=== PATIENT | male | born 1955 | race Hispanic/Latino ===

== ENCOUNTER 2019-08-30 12:13 | Inpatient (IN) | payer BC, MEDICARE ==
[~2019-08-30] VITALS: Ht 190.5 cm; Wt 135.0 kg
[2019-08-30 12:43] LABS: BASOPHILS % (AUTO) 0.1 % (0.0-5.0); HEMATOCRIT 44.3 % (42-54); LYMPHOCYTES % (AUTO) 16.2 % (21.0-51.0); MEAN CORPUSCULAR HEMOGLOBIN 28.8 pg (27.0-33.0); MEAN CORPUSCULAR HGB CONC 34.3 g/dL (32.0-36.0); MEAN CORPUSCULAR VOLUME 83.9 fL (79-99); MONOCYTES % (AUTO) 5.8 % (3.0-13.0); NEUTROPHILS % (AUTO) 77.7 % (40.0-77.0); PLATELET COUNT (AUTO) 219 K/uL (130-400); RED BLOOD CELL COUNT(AUTO) 5.28 MIL/uL (4.50-6.20); RED CELL DISTRIBUTION WIDTH 13.6 % (11.0-15.5); WHITE BLOOD COUNT (AUTO) 8.3 K/uL (4.8-10.8)
[2019-08-30] MEDS ORDERED: AZITHROMYCIN 500MG+NS 250ML 250 ML IV ONE (12:50)
[2019-08-30] MEDS ORDERED: CEFTRIAXONE SODIUM 1 GM ONE (12:50)
[2019-08-30] MEDS ORDERED: METHYLPREDNISOLONE SOD SUCC 125MG/2ML VIAL ONE (12:50)
[2019-08-30 12:51] LABS: POTASSIUM 4.2 mmol/L (3.5-5.1)
[2019-08-30] MEDS ORDERED: SODIUM CHLORIDE 0.9% 100 ML IV ONE (12:51)
[2019-08-30 12:56] LABS: ALBUMIN 4.1 g/dL (3.5-5.0); BILIRUBIN,TOTAL 0.6 mg/dL (0.2-1.0); TOTAL PROTEIN, SERUM 8.4 g/dL (6.0-8.3)
[2019-08-30 13:08] LABS: ABG BASE EXCESS 1.6 mmol/L (-2.0-3.0); ABG HCO3 26.3 mmol/L (21.0-28.0); ABG OXYGEN SATURATION 94.6 % (95.0-99.0); ABG PCO2 42 mmHg (35-48)
[2019-08-30] MEDS ORDERED: IOHEXOL-350 75 ML VIAL IV ONE (13:54)
[2019-08-30] MEDS ORDERED: SODIUM CHLORIDE 0.9% 1000ML 1,000 ML IV SCH (14:00)
[2019-08-30 15:22] VITALS: BP 142/74
[2019-08-30] MEDS ORDERED: NITROGLYCERIN 0.4 MG SL TAB SL PRN (16:30)
[2019-08-30] MEDS ORDERED: LIDOCAINE HCL-MPF 1% 2ML VIAL IJ PRN (16:30)
[2019-08-30] MEDS ORDERED: ONDANSETRON HCL 4 MG/2 ML VIAL IVP PRN (16:30)
[2019-08-30] MEDS ORDERED: GUAIFENESIN-DM 200/20 MG 10 ML PO PRN (16:30)
[2019-08-30] MEDS ORDERED: DiphenhydrAMINE HCL 50 MG/ML VIAL IVP PRN (16:30)
[2019-08-30] MEDS ORDERED: DIPHENHYDRAMINE HCL 25 MG CAPSULE PO PRN (16:30)
[2019-08-30] MEDS ORDERED: LACTULOSE 20 GM/30 ML UDCUP PO PRN (16:30)
[2019-08-30] MEDS ORDERED: POTASSIUM CHLORIDE 20MEQ/100ML 100 ML IV PRN (16:30)
[2019-08-30] MEDS ORDERED: POTASSIUM CHLORIDE 10% ELIXIR 20 MEQ/15 ML UDCUP PO PRN (16:30)
[2019-08-30] MEDS ORDERED: CLONIDINE HCL 0.1 MG TABLET PO PRN (16:30)
[2019-08-30] MEDS ORDERED: SODIUM CHLORIDE 0.9% 10 ML VIAL IVP SCH (16:30)
[2019-08-30] MEDS ORDERED: MAG HYDROX/AL HYDROX/SIMETH ES 30 ML SUSP UDCUP PO PRN (16:30)
[2019-08-30] MEDS ORDERED: POTASSIUM CHLORIDE 20 MEQ ERTAB PO PRN (16:30)
[2019-08-30] MEDS ORDERED: ACETAMINOPHEN 325 MG TAB PO PRN ×2 (16:30)
[2019-08-30] MEDS ORDERED: PRED5TAB PO (17:28)
[2019-08-30] MEDS ORDERED: ALBUTEROL SULFATE IH (17:28)
[2019-08-30] MEDS ORDERED: [UNRECOGNIZED DRUG - CODE] PO (17:28)
[2019-08-30] MEDS ORDERED: VIRTUSSIN PO (17:28)
[2019-08-30] MEDS ORDERED: AMOX1TAB16 PO (17:28)
[2019-08-30] MEDS ORDERED: AZIT500T4 PO (17:28)
[2019-08-30] MEDS ORDERED: METH4TAB PO (17:28)
[2019-08-30] MEDS: IPRATROPIUM/ALBUTEROL SULFATE 3 ML SOLUTION IH SCH ×2 (19:01→22:35)
[2019-08-30 19:52] VITALS: BP 155/78
[2019-08-30] MEDS: FAMOTIDINE 20MG TAB 20 MG TAB PO SCH (22:21)
[2019-08-30] MEDS: ZOLPIDEM TARTRATE 5 MG TAB PO PRN (22:54)
[2019-08-30 23:48] VITALS: BP 192/69
[2019-08-31] VITALS (7 sets, daily range): BP systolic 107–140; BP diastolic 63–80
[2019-08-31 04:34] LABS: HEMATOCRIT 41.6 % (42-54); MEAN CORPUSCULAR HEMOGLOBIN 28.3 pg (27.0-33.0); MEAN CORPUSCULAR HGB CONC 33.9 g/dL (32.0-36.0); MEAN CORPUSCULAR VOLUME 83.5 fL (79-99); RED BLOOD CELL COUNT(AUTO) 4.98 MIL/uL (4.50-6.20); RED CELL DISTRIBUTION WIDTH 13.6 % (11.0-15.5); WHITE BLOOD COUNT (AUTO) 7.1 K/uL (4.8-10.8)
[2019-08-31 04:52] LABS: POTASSIUM 3.7 mmol/L (3.5-5.1)
[2019-08-31] MEDS: IPRATROPIUM/ALBUTEROL SULFATE 3 ML SOLUTION IH SCH ×5 (06:45→21:49)
[2019-08-31] MEDS: METHYLPREDNISOLONE SOD SUCC 125MG/2ML VIAL IVP SCH (09:57)
[2019-08-31] MEDS: AZITHROMYCIN 500MG+NS 250ML 250 ML IV SCH (09:57)
[2019-08-31] MEDS: CEFTRIAXONE SODIUM 1 GM IVP SCH (09:57)
[2019-08-31] MEDS: FAMOTIDINE 20MG TAB 20 MG TAB PO SCH ×2 (09:57→19:37)
[2019-08-31] MEDS: ENOXAPARIN SODIUM 40 MG/0.4 ML SYRINGE SQ SCH (09:58)
--- NOTE | 2019-08-31 14:46 | NUR ---
DC PLAN VISITED WITH PATIENT. PATIENT LIVES WITH SPOUSE. INDEPENDENT ABLE TO PERFORM ADL'S. PATIENT HAS NO SERVICES OR DME'S. FEELS SAFE TO RETURN HOME. INQUIRED ABOUT A NEBULIZER ASKED IF HE HAD BEEN DIAGNOSED WITH A CHRONIC CONDITION LIKE COPD, ASTHMA. SAID NO WILL ASK DR. ABBOTT TO SEE IF HE HAS SOMETHING. LET NURSE KNOW THAT PATIENT IS INTERESTED IN NEBULIZER NEED SCRIPT TO BEGIN REFERRAL. Addendum: 08/31/19 at 1449 by CATALINO DEY RN Amended: Links added.
[2019-08-31] MEDS: ZOLPIDEM TARTRATE 5 MG TAB PO PRN (23:55)
[2019-09-01] MEDS: IPRATROPIUM/ALBUTEROL SULFATE 3 ML SOLUTION IH SCH ×3 (02:45→10:04)
[2019-09-01 03:00] VITALS: BP 139/65
--- NOTE | 2019-09-01 07:45 | NUR ---
NOTE AAOX3. DENIES SOB OR CHEST PAIN. TELEMETRY SR. BBS CLEAR TO ALL LOBES. CAME IN WITH C/O SOB. STATES HE WAS FEELING SOB WHEN HE WOULD LAY DOWN AND THEN IT STARTED HAPPENING AT REST OR WHEN HE WAS UP WELL. HE RECEIVED TREATMENT WITH ABX AND STEROIDS OUTPATIENT BUT NOTHING HELPED SO HE DECIDED TO COME IN TO SEE DR ABBOTT FROM [facility]. HE WAS ADMITTED AND HAD CT CHEST ANGIO TO RULE OUT P.E. IT WAS NEGATIVE. STATES HE FEELS A LOT BETTER. HE WALKED AROUND THE HALLS YESTERDAY SEVERAL TIMES DURING THE DAY. CONTINUES WITH IV ABX AND STEROIDS. POSSIBLE DC TODAY.
[2019-09-01 08:14] VITALS: BP 149/81
--- NOTE | 2019-09-01 08:26 | NUR ---
MILENA ABBOTT JUST ROUNDED AND HE IS DISCHARGING PATIENT BUT HE CAN GO AT 12:00. RX PRESENT FOR ABX STEROIDS AND NEBULIZERS. REFER TO CHART.
[2019-09-01] MEDS: METHYLPREDNISOLONE SOD SUCC 125MG/2ML VIAL IVP SCH (08:43)
[2019-09-01] MEDS: AZITHROMYCIN 500MG+NS 250ML 250 ML IV SCH (08:43)
[2019-09-01] MEDS: CEFTRIAXONE SODIUM 1 GM IVP SCH (08:43)
[2019-09-01] MEDS: ENOXAPARIN SODIUM 40 MG/0.4 ML SYRINGE SQ SCH (08:52)
[2019-09-01] MEDS: FAMOTIDINE 20MG TAB 20 MG TAB PO SCH (09:19)
[2019-09-01 11:12] VITALS: BP 135/61
--- NOTE | 2019-09-01 12:45 | NUR ---
NOTE DISCHARGED HOME AT THIS TIME. VERBALIZED UNDERSTANDING. REFER TO DC SUMMARY FOR DETAILS. NO N/V NO SOB NO CHEST PAIN. TELEMETRY WAS SR 70'S. NO OTHER PROBLEMS VOICED.
== END 2019-09-01 13:10 | disposition home or self-care (01) | DRG 203 ==
LOC: EDH 12:13 → EDHIP 12:14 → 3DH 14:56
PROVIDERS: ADMIT Family Medicine; ATTEND Family Medicine
DX: J20.9 Acute bronchitis, unspecified (principal); I10 Essential (primary) hypertension; E03.9 Hypothyroidism, unspecified; E78.00 Pure hypercholesterolemia, unspecified; E66.9 Obesity, unspecified; Z68.37 Body mass index [BMI] 37.0-37.9, adult; Z87.891 Personal history of nicotine dependence
CPT/HCPCS: 36415; 36600; 71275; 80048; 80053; 82803; 85025; 85027; 87040; 87071; 87077; 87186; 87205; 94640; 94664; G0378; J0456; J0696; J1650; J2930; Q9967

== ENCOUNTER → 2020-01-09 | Outpatient (CLI) | payer BC ==
[~2020-01-09] MED LIST: ALBUTEROL SULFATE IH; [UNRECOGNIZED DRUG - CODE] PO
== END | disposition home or self-care (01) ==
LOC: SHCH 09:41
PROVIDERS: ATTEND Internal Medicine Cardiovascular Disease
DX: I51.7 Cardiomegaly (principal); I87.2 Venous insufficiency (chronic) (peripheral)
CPT/HCPCS: 93306; 93970

== ENCOUNTER → 2020-01-12 | Outpatient (CLI) | payer BC ==
[2020-01-12] MEDS: REGADENOSON 0.4 MG/5 ML PF SYG IVP SCH (12:20)
== END | disposition home or self-care (01) ==
LOC: RAH 09:06
PROVIDERS: ATTEND Internal Medicine Cardiovascular Disease
DX: R07.9 Chest pain, unspecified (principal); R06.09 Other forms of dyspnea
CPT/HCPCS: 78452; 93017; 96374; A9500 ×2; J2785

== ENCOUNTER 2021-01-08 07:20 | Day surgery (SDC) | payer BC ==
[2021-01-03 14:32] LABS: BASOPHILS % (AUTO) 0.5 % (0.0-5.0); EOSINOPHILS % (AUTO) 3.1 % (0.0-8.0); HEMATOCRIT 47.1 % (42-54); LYMPHOCYTES % (AUTO) 25.6 % (21.0-51.0); MEAN CORPUSCULAR HEMOGLOBIN 29.1 pg (27.0-33.0); MEAN CORPUSCULAR HGB CONC 33.1 g/dL (32.0-36.0); MEAN CORPUSCULAR VOLUME 87.7 fL (79-99); MONOCYTES % (AUTO) 8.7 % (3.0-13.0); NEUTROPHILS % (AUTO) 61.8 % (40.0-77.0); PLATELET COUNT (AUTO) 229 K/uL (130-400); RED BLOOD CELL COUNT(AUTO) 5.37 MIL/uL (4.50-6.20); RED CELL DISTRIBUTION WIDTH 14.3 % (11.0-15.5); WHITE BLOOD COUNT (AUTO) 7.8 K/uL (4.8-10.8)
[2021-01-03 14:42] LABS: CREATININE 1.1 mg/dL (0.5-1.5); POTASSIUM 4.6 mmol/L (3.5-5.1)
[2021-01-03 14:43] LABS: INR 1.2 (0.85-1.15); PROTHROMBIN TIME 12.9 SEC (9.6-11.6)
[2021-01-03 14:44] LABS: PARTIAL THROMBOPLASTIN TIME 29.2 SEC (26.3-35.5)
[~2021-01-08] VITALS: Ht 190.5 cm; Wt 147.4 kg
[~2021-01-08 07:20] MED LIST changes: -ALBUTEROL SULFATE IH; +AMLO-257 PO; +APIX5TAB PO; +ATOR20TA65 PO; +CARV12.511 PO; +IBUP-2077 PO; +LEVO175T64 PO; +LOSA100T58 PO; +TRAM50TA4 PO
[2021-01-08 07:40] VITALS: BP 139/80
[2021-01-08] MEDS ORDERED: 0.9%NACL 1000ML 1,000 ML IV SCH (08:00)
[2021-01-08] MEDS ORDERED: FLUMAZENIL 0.1MG/1ML 5ML VIAL IV ONE (08:24)
[2021-01-08] MEDS ORDERED: NALOXONE HCL 0.4 MG/1 ML ML ONE (08:24)
[2021-01-08] MEDS ORDERED: FENTANYL CITRATE PF 50 MCG/1 ML 2ML VIAL ONE (08:25)
[2021-01-08] MEDS ORDERED: MIDAZOLAM HCL 1 MG/ML 2ML VIAL ONE (08:26)
== END 2021-01-08 10:30 | disposition home or self-care (01) ==
LOC: DAH 07:20
PROVIDERS: ATTEND Internal Medicine Cardiovascular Disease
DX: I48.91 Unspecified atrial fibrillation (principal); R06.09 Other forms of dyspnea; R07.9 Chest pain, unspecified; I10 Essential (primary) hypertension; E78.5 Hyperlipidemia, unspecified; I87.2 Venous insufficiency (chronic) (peripheral); E03.9 Hypothyroidism, unspecified; J44.9 Chronic obstructive pulmonary disease, unspecified; E66.01 Morbid (severe) obesity due to excess calories; F41.9 Anxiety disorder, unspecified; Z79.01 Long term (current) use of anticoagulants; Z68.41 Body mass index [BMI] 40.0-44.9, adult; Z79.899 Other long term (current) drug therapy; Z90.49 Acquired absence of other specified parts of digestive tract
CPT/HCPCS: 36415; 80048; 85025; 85610; 85730; 92960; 93005 ×2; A4215 ×2; A4216; A4221; A4222; A4223 ×3; A4606; A4657; A4663; J2250; J3010; J7030; 99152; J2310; J3490

== ENCOUNTER 2021-03-06 07:07 | Day surgery (SDC) | payer BC ==
[2021-03-05 13:47] LABS: BASOPHILS % (AUTO) 1.1 % (0.0-5.0); EOSINOPHILS % (AUTO) 12.2 % (0.0-8.0); HEMATOCRIT 42.5 % (42-54); LYMPHOCYTES % (AUTO) 31.2 % (21.0-51.0); MEAN CORPUSCULAR HEMOGLOBIN 29.4 pg (27.0-33.0); MEAN CORPUSCULAR HGB CONC 34.8 g/dL (32.0-36.0); MEAN CORPUSCULAR VOLUME 84.5 fL (79-99); MONOCYTES % (AUTO) 10.3 % (3.0-13.0); NEUTROPHILS % (AUTO) 44.8 % (40.0-77.0); PLATELET COUNT (AUTO) 201 K/uL (130-400); RED BLOOD CELL COUNT(AUTO) 5.03 MIL/uL (4.50-6.20); RED CELL DISTRIBUTION WIDTH 14.5 % (11.0-15.5); WHITE BLOOD COUNT (AUTO) 5.7 K/uL (4.8-10.8)
[2021-03-05 14:02] LABS: INR 1.21 (0.85-1.15)
[2021-03-05 14:05] LABS: CREATININE 1.1 mg/dL (0.5-1.5)
[2021-03-05 18:48] VITALS: BP 148/72
[2021-03-06] VITALS (10 sets, daily range): BP systolic 90–150; BP diastolic 60–83
[~2021-03-06] VITALS: Ht 190.5 cm; Wt 152.0 kg
[~2021-03-06 07:07] MED LIST changes: +0.9%NACL 1000ML 1,000 ML IV SCH; +DRON400T7 PO; -[UNRECOGNIZED DRUG - CODE] PO
== END 2021-03-06 10:45 | disposition home or self-care (01) ==
LOC: DAH 07:07
PROVIDERS: ATTEND Internal Medicine Cardiovascular Disease
DX: I48.19 Other persistent atrial fibrillation (principal); Z20.822 Contact with and (suspected) exposure to COVID-19; I10 Essential (primary) hypertension; E66.01 Morbid (severe) obesity due to excess calories; I25.2 Old myocardial infarction; M19.90 Unspecified osteoarthritis, unspecified site; E03.9 Hypothyroidism, unspecified; E66.9 Obesity, unspecified; J44.9 Chronic obstructive pulmonary disease, unspecified; E78.5 Hyperlipidemia, unspecified; F41.9 Anxiety disorder, unspecified; I87.2 Venous insufficiency (chronic) (peripheral); Z87.891 Personal history of nicotine dependence; Z90.49 Acquired absence of other specified parts of digestive tract; Z98.890 Other specified postprocedural states; Z79.01 Long term (current) use of anticoagulants; Z68.41 Body mass index [BMI] 40.0-44.9, adult
CPT/HCPCS: 36415; 80048; 85025; 85610; 87635; 92960; 93005 ×2; A4215; A4216; A4221; A4222; A4223 ×3; A4606; A4663; A7002; C9803; J7030 ×2; 99152

== ENCOUNTER 2021-03-12 17:53 | Emergency (ER) | payer BC ==
[~2021-03-12] VITALS: Ht 190.5 cm; Wt 151.5 kg
[~2021-03-12 17:53] MED LIST changes: -0.9%NACL 1000ML 1,000 ML IV SCH
[2021-03-12 18:21] LABS: BASOPHILS % (AUTO) 0.9 % (0.0-5.0); EOSINOPHILS % (AUTO) 9.6 % (0.0-8.0); HEMATOCRIT 44.9 % (42-54); LYMPHOCYTES % (AUTO) 30.8 % (21.0-51.0); MEAN CORPUSCULAR HEMOGLOBIN 29.1 pg (27.0-33.0); MEAN CORPUSCULAR HGB CONC 33.9 g/dL (32.0-36.0); MEAN CORPUSCULAR VOLUME 85.9 fL (79-99); MONOCYTES % (AUTO) 10.4 % (3.0-13.0); NEUTROPHILS % (AUTO) 48.1 % (40.0-77.0); PLATELET COUNT (AUTO) 193 K/uL (130-400); RED BLOOD CELL COUNT(AUTO) 5.23 MIL/uL (4.50-6.20); RED CELL DISTRIBUTION WIDTH 14.3 % (11.0-15.5); WHITE BLOOD COUNT (AUTO) 5.9 K/uL (4.8-10.8)
[2021-03-12 18:43] LABS: ALBUMIN 3.9 g/dL (3.5-5.0); BILIRUBIN,TOTAL 0.7 mg/dL (0.2-1.0); CREATININE 1.2 mg/dL (0.5-1.5); POTASSIUM 3.8 mmol/L (3.5-5.1)
[2021-03-12] MEDS ORDERED: IOHEXOL-350 75 ML VIAL IV ONE (18:59)
[2021-03-12 20:37] VITALS: BP 158/84
== END 2021-03-12 20:41 | disposition home or self-care (01) ==
LOC: EDH 17:53
DX: I48.91 Unspecified atrial fibrillation (principal); R06.00 Dyspnea, unspecified; I10 Essential (primary) hypertension; Z79.01 Long term (current) use of anticoagulants; Z79.1 Long term (current) use of non-steroidal anti-inflammatories (NSAID); Z79.899 Other long term (current) drug therapy
CPT/HCPCS: 36415 ×2; 71275; 80048; 80053; 82550; 83874; 83880; 84484; 85025 ×2; 85378; 93005; 99284; Q9967; 96372

== ENCOUNTER 2021-06-24 10:36 | Day surgery (SDC) | payer OTHER ==
[2021-06-21 12:18] LABS: BASOPHILS % (AUTO) 1.1 % (0.0-5.0); EOSINOPHILS % (AUTO) 15.1 % (0.0-8.0); HEMATOCRIT 44.3 % (42-54); LYMPHOCYTES % (AUTO) 24.2 % (21.0-51.0); MEAN CORPUSCULAR HEMOGLOBIN 29.1 pg (27.0-33.0); MEAN CORPUSCULAR HGB CONC 33.4 g/dL (32.0-36.0); MEAN CORPUSCULAR VOLUME 87.2 fL (79-99); MONOCYTES % (AUTO) 11.5 % (3.0-13.0); NEUTROPHILS % (AUTO) 47.9 % (40.0-77.0); PLATELET COUNT (AUTO) 209 K/uL (130-400); RED BLOOD CELL COUNT(AUTO) 5.08 MIL/uL (4.50-6.20); RED CELL DISTRIBUTION WIDTH 14.4 % (11.0-15.5); WHITE BLOOD COUNT (AUTO) 5.4 K/uL (4.8-10.8)
[2021-06-21 12:29] LABS: INR 1.21 (0.85-1.15)
[2021-06-21 12:30] LABS: PARTIAL THROMBOPLASTIN TIME 29.6 SEC (26.3-35.5)
[2021-06-21 12:31] LABS: CREATININE 0.9 mg/dL (0.5-1.5); POTASSIUM 4.5 mmol/L (3.5-5.1)
[2021-06-21 12:59] LABS: B-TYPE NATRIURETIC PEPTIDE 20 pg/mL (0-100)
[2021-06-21 13:27] LABS: APPEARANCE,URINE Clear (CLEAR); BILIRUBIN,URINE Negative (NEGATIVE); COLOR,URINE Yellow (YELLOW); GLUCOSE, URINE (UA) Negative (NEGATIVE); KETONES,URINE Negative (NEGATIVE); LEUKOCYTE ESTERASE ,URINE Negative (NEGATIVE); NITRATE,URINE Negative (NEGATIVE); OCCULT BLOOD,URINE Negative (NEGATIVE); PROTEIN,URINE Negative (NEGATIVE)
[2021-06-21 14:05] VITALS: BP 164/77
[~2021-06-24] VITALS: Ht 190.5 cm; Wt 155.9 kg
[2021-06-24] VITALS (8 sets, daily range): BP systolic 126–159; BP diastolic 69–91
[~2021-06-24 10:36] MED LIST changes: +CLON1TAB23 PO; -IBUP-2077 PO; -TRAM50TA4 PO
[2021-06-24] MEDS ORDERED: 0.9%NACL 1000ML 1,000 ML IV ONE (12:02)
[2021-06-24] MEDS ORDERED: LIDOCAINE HCL 1% 20 ML VIAL ONE (13:45)
[2021-06-24] MEDS ORDERED: BIVALIRUDIN 250 MG/VIAL IV ONE (13:46)
[2021-06-24] MEDS ORDERED: IOHEXOL 350 MG/ML 100ML INFUS..BTL IV ONE (13:46)
[2021-06-24] MEDS ORDERED: MIDAZOLAM HCL 1 MG/ML 2ML VIAL ONE (13:46)
[2021-06-24] MEDS ORDERED: HEPARIN 10,000 UNIT/10ML (1,000 UNIT/ML) VIAL ONE ×2 (13:46→15:03)
[2021-06-24] MEDS ORDERED: IOHEXOL-350 50ML VIAL IV ONE (13:46)
[2021-06-24] MEDS ORDERED: NITROGLYCERIN 50MG VIAL ONE (13:46)
[2021-06-24] MEDS ORDERED: FENTANYL CITRATE PF 50 MCG/1 ML 2ML VIAL ONE (13:47)
[2021-06-24] MEDS ORDERED: GLUCAGON 1MG KIT 1 MG ML IM PRN (15:30)
[2021-06-24] MEDS ORDERED: HYDRALAZINE 20MG/ML VIAL IV PRN (15:30)
[2021-06-24] MEDS ORDERED: METOPROLOL TARTRATE 1 MG/ML 5ML VIAL IV PRN (15:30)
[2021-06-24] MEDS ORDERED: DEXTROSE 50%-WATER 50 ML DISP.SYRIN IV PRN (15:30)
[2021-06-24] MEDS ORDERED: NITROGLYCERIN 0.4 MG SL TAB SL PRN (15:30)
[2021-06-24] MEDS ORDERED: 0.9%NACL 1000ML 1,000 ML IV SCH (15:30)
== END 2021-06-24 19:05 | disposition home or self-care (01) ==
LOC: DAH 10:36
PROVIDERS: ATTEND Internal Medicine Cardiovascular Disease
DX: I27.20 Pulmonary hypertension, unspecified (principal); I25.119 Atherosclerotic heart disease of native coronary artery with unspecified angina pectoris; I48.0 Paroxysmal atrial fibrillation; I10 Essential (primary) hypertension; E66.01 Morbid (severe) obesity due to excess calories; I25.10 Atherosclerotic heart disease of native coronary artery without angina pectoris; M19.90 Unspecified osteoarthritis, unspecified site; E03.9 Hypothyroidism, unspecified; E78.5 Hyperlipidemia, unspecified; J44.9 Chronic obstructive pulmonary disease, unspecified; F41.9 Anxiety disorder, unspecified; I87.2 Venous insufficiency (chronic) (peripheral); Z87.891 Personal history of nicotine dependence; Z90.49 Acquired absence of other specified parts of digestive tract; Z68.41 Body mass index [BMI] 40.0-44.9, adult; Z79.01 Long term (current) use of anticoagulants; Z98.890 Other specified postprocedural states; Z79.890 Hormone replacement therapy
CPT/HCPCS: 36415; 80048; 81003; 83880; 85025; 85610; 85730; 93460; C1894 ×4; J1644 ×2; J2250; J3010; J3490; J7030; Q9967 ×2; 99156; 99157; J0583